=== PATIENT | male | born 2000 | race Two or more races ===

== ENCOUNTER 2023-06-11 10:54 | Emergency (ER) | payer OTHER ==
[~2023-06-11] VITALS: Ht 170.2 cm; Wt 81.6 kg
[2023-06-11 11:38] VITALS: BP 120/90; RESP 18; TEMP 99.7; O2SAT 96
[2023-06-11] MEDS ORDERED: AMOX875T4 PO (11:52)
[2023-06-11] MEDS ORDERED: ACET500T58 PO (11:52)
[2023-06-11] MEDS ORDERED: PRED20TA2 PO (11:52)
[2023-06-11 12:01] VITALS: PULSE 115
[2023-06-11] MEDS: methylPREDNISolone SOD SUCC 125 MG/2 ML VL IM ONE (12:07)
[2023-06-11] MEDS: cefTRIAXone SOD 1,000 MG VL IM ONE (12:07)
== END 2023-06-11 12:09 | disposition home or self-care (01) ==
LOC: ER 10:54
DX: J03.90 Acute tonsillitis, unspecified (principal); Z88.6 Allergy status to analgesic agent
CPT/HCPCS: 96372; 99284; J0696; J2930